=== PATIENT | male | born 1970 | race Caucasian/White ===

== ENCOUNTER 2023-08-27 01:13 | Emergency (ER) | payer OTHER, BC ==
[~2023-08-27] VITALS: Ht 182.9 cm; Wt 122.9 kg
[2023-08-27] MEDS ORDERED: LITHIUM CARBON150 MG PO (01:23)
[2023-08-27] MEDS ORDERED: METOPROLOL SUCC25 MG PO (01:23)
[2023-08-27] MEDS ORDERED: NORVASC5 MG PO (01:24)
[2023-08-27] MEDS ORDERED: KETOROLAC TROMETHAMINE 60 MG/2 ML VIAL IM ONE (01:30)
[2023-08-27 01:32] LABS: BASOPHILS 1.3 % (0-2); EOSINOPHILS 1.7 % (0-6); LYMPHOCYTES 15.9 % (24-44); MCH 31.1 (27-36); MCHC 34.9 g/dl (30-36); MCV 89.1 fl (81-99); MONOCYTES 7.6 % (0-12); NEUTROPHILS 73.5 % (39-80); PLATELET COUNT 274 K/uL (140-440); RBC 4.49 M/ul (4.3-5.7)
[2023-08-27 01:47] LABS: ALBUMIN 3.7 g/dL (3.4-5.0); ALCOHOL, MEDICAL <3 ng/dL (<3); ALKALINE PHOSPHATASE 81 U/L (46-116); ALT (SGPT) 45 U/L (14-59); ANION GAP 15.2 (7-21); AST (SGOT) 21 U/L (15-37); BILIRUBIN, TOTAL 0.4 ng/dL (0.2-1.0); BUN/CREATININE RATIO 11.92 (6.0-28.6); CALCIUM 9.1 mg/dL (8.5-10.1); CARBON DIOXIDE 24 mmol/L (21-32); CHLORIDE 100 mmol/L (98-107); CREATININE, SERUM 1.09 mg/dL (0.70-1.30); GLOMERULAR FILTRATION RATE,EST 82 mL/min (>60); POTASSIUM 4.2 mmol/L (3.5-5.1); PROTEIN, TOTAL 7.4 g/dL (6.4-8.2); UREA NITROGEN 13 mg/dL (7-18)
[2023-08-27 01:58] LABS: AMPHETAMINES, URINE NEGATIVE (NEGATIVE); BARBITURATES, URINE NEGATIVE (NEGATIVE); BENZODIAZEPINE, URINE NEGATIVE (NEGATIVE); BUPRENORPHINE, URINE NEGATIVE (NEGATIVE); CANNABINOID, URINE NEGATIVE (NEGATIVE); COCAINE, URINE NEGATIVE (NEGATIVE); ECSTASY, URINE NEGATIVE (NEGATIVE); FENTANYL, URINE NEGATIVE (NEGATIVE); METHADONE, URINE NEGATIVE (NEGATIVE); OPIATES, URINE NEGATIVE (NEGATIVE); OXYCODONE, URINE NEGATIVE (NEGATIVE); PHENCYCLIDINE, URINE NEGATIVE (NEGATIVE)
[2023-08-27] MEDS ORDERED: CYCLOBENZAPRINE10 MG PO (02:57)
[2023-08-27] MEDS ORDERED: MELOXICAM15 MG PO (02:57)
[2023-08-27 03:07] VITALS: BP 135/74
== END 2023-08-27 03:07 | disposition home or self-care (01) ==
LOC: ED 01:13
PROVIDERS: Family Medicine
DX: S00.93XA Contusion of unspecified part of head, initial encounter (principal); S16.1XXA Strain of muscle, fascia and tendon at neck level, initial encounter; S29.011A Strain of muscle and tendon of front wall of thorax, initial encounter; F31.9 Bipolar disorder, unspecified; I10 Essential (primary) hypertension; V68.5XXA Driver of heavy transport vehicle injured in noncollision transport accident in traffic accident, initial encounter; Z79.899 Other long term (current) drug therapy
CPT/HCPCS: 36415; 70450; 71250; 72125; 80053; 80307; 85025; 96372; 99284-25; G0480; J1885